=== PATIENT | male | born 1955 | race Caucasian/White ===

== ENCOUNTER → 2024-11-22 | Outpatient (CLI) | payer MEDICARE, SELFPAY ==
--- NOTE | 2024-11-22 08:16 | MRI_ITS ---
EXAMINATION: MR Prostate WO/W Contrast COMPARISON: None CLINICAL HISTORY: 69 yo M with elevated PSA Most recent PSA = 11.8 ng/ml; PSA date = 3 weeks ago TECHNIQUE: Standard prostate MR protocol was used before and after administration of 20 cc of IV Clariscan. FINDINGS: Prostate volume: 105 cc PSA density: 0.11ng/ml2 Length of membranous urethra: 15 mm Post-biopsy hemorrhage: None Multiparametric MR evaluation: Heterogeneous appearance of the central gland is consistent with benign prostatic hyperplasia. Lesion 1: LOCATION - 1.2 x 0.7 x 1.1 cm mildly T2 hypointense ill-defined lesion in the right posterior transitional zone at mid gland (image 14, series 6). It is mildly bright on DWI and moderately dark on ADC map. T2 - 3 DWI - 3 DCE - inconclusive Overall PI-RADS v2 score = 3 Capsular margin and neurovascular bundle: Not involved Seminal vesicles: Not involved. Lymph nodes: No lymphadenopathy in the field of view. Bones: No suspicious lesions in the field of view. MRI/Pelvis W/WO Contrast IMPRESSION: 1.2 cm PI-RADS 3 lesion in the right posterior TZ at mid gland. - No evidence of macroscopic extracapsular extension. - No evidence of seminal vesicle invasion. - No lymphadenopathy. - No suspicious bone lesions. Benign prostatic hyperplasia. Electronically Signed: Tommy Walker MD at 16:54 EST ,
== END | disposition home or self-care (01) ==
PROVIDERS: PCP Physician Assistant; Referring Provider Urology; Visit Provider Urology
DX: C61 Malignant neoplasm of prostate (principal); R97.20 Elevated prostate specific antigen [PSA]; N40.1 Benign prostatic hyperplasia with lower urinary tract symptoms
CPT/HCPCS: 72197; A9575